=== PATIENT | male | born 1965 | race Caucasian/White ===

== ENCOUNTER 2016-11-28 18:45 | Inpatient (IN) | payer MEDICAID ==
[~2016-11-28] VITALS: Ht 157.5 cm; Wt 78.0 kg
[~2016-11-28 18:45] MED LIST: ACET325T33 PO; CEFD300C2 PO; GLYB1TAB3 PO; METO10TA92 PO; PANT40TA3 PO
[2016-11-28 19:32] VITALS: Ht 157.5 cm; Wt 78.0 kg
[2016-11-28] MEDS ORDERED: SOD CHLORIDE 0.9% 1,000 ML IV STA (20:35)
[2016-11-28] MEDS ORDERED: morphine 4 MG/ML VIAL IV STA ×2 (20:35→22:27)
[2016-11-28] MEDS ORDERED: ONDANSETRON 4 MG INJ IV STA ×2 (20:35→22:27)
[2016-11-28 20:55] LABS: ABNORMAL IP MESSAGE 1; BASOPHILS % 0.5 % (0.0-2.0); EOSINOPHILS % 0.1 % (0.0-7.0); HEMATOCRIT 46.9 % (42.0-52.0); LYMPHOCYTES % 6.8 % (15.0-51.0); MEAN CORPUSCULAR HEMOGLOBIN 34.7 pg (29.0-33.0); MEAN CORPUSCULAR VOLUME 89.3 fl (82.0-101.0); MONOCYTES % 6.5 % (0.0-11.0); NEUTROPHILS % 85.6 % (39.0-77.0); PLATELET COUNT 80 10^3/UL (140-415); POSITIVE DIFF @See below; RED BLOOD COUNT 5.25 10^6/ul (4.70-6.10); WHITE BLOOD COUNT 15.8 10^3/ul (4.8-10.8)
[2016-11-28 21:04] LABS: MEAN CORPUSCULAR HGB CONC 38.8 g/dl (32.0-37.0)
[2016-11-28 21:05] LABS: ADD UMIC YES; UR ASCORBIC ACID NEGATIVE (NEGATIVE); UR BACTERIA FEW /HPF (NONE SEEN); UR BILIRUBIN (Dip) NEGATIVE (NEGATIVE); UR BLOOD (Dip) 2+ mg/dL (NEGATIVE); UR CLARITY CLEAR (CLEAR); UR COLOR YELLOW (YELLOW); UR GLUCOSE (Dip) 3+ mg/dL (NEGATIVE); UR KETONES (Dip) 2+ mg/dL (NEGATIVE); UR LEUKOCYTE ESTERASE (Dip) NEGATIVE Leu/ul (NEGATIVE); UR MUCUS FEW /HPF (NONE SEEN); UR NITRITE (Dip) NEGATIVE (NEGATIVE); UR RBC 6 /HPF (0-5); UR SPECIFIC GRAVITY (Dip) 1.044 (1.003-1.030); UR TOTAL PROTEIN (Dip) 3+ mg/dl (NEGATIVE); UR UROBILINOGEN (Dip) NEGATIVE (NEGATIVE)
[2016-11-28] MEDS ORDERED: GLYB1TAB3 PO (21:05)
[2016-11-28] MEDS ORDERED: SIMV20TA PO (21:06)
[2016-11-28 21:07] LABS: HEMOGLOBIN 18.2 g/dl (14.0-18.0)
[2016-11-28 21:14] LABS: ALANINE AMINOTRANSFERASE 37 IU/L (13-69); ALBUMIN 3.9 g/dl (3.3-4.9); ALBUMIN/GLOBULIN RATIO 0.81; ALKALINE PHOSPHATASE 140 IU/L (42-121); ANION GAP 27 (8-16); ASPARTATE AMINO TRANSFERASE 29 IU/L (15-46); BILIRUBIN,INDIRECT 0.7 mg/dl (0-1.1); BILIRUBIN,TOTAL 0.7 mg/dl (0.2-1.3); BLOOD UREA NITROGEN 9 mg/dl (7-20); CALCIUM 9.1 mg/dl (8.4-10.2); CARBON DIOXIDE 18 mmol/L (21-31); CHLORIDE 97 mmol/L (97-110); CREATININE 0.47 mg/dl (0.61-1.24); GLUCOSE 279 mg/dl (70-220); POTASSIUM 4.4 mmol/L (3.5-5.1); SODIUM 138 mmol/L (135-144); TOTAL PROTEIN 8.7 g/dl (6.1-8.1)
[2016-11-28 21:27] LABS: TROPONIN-I < 0.012 ng/ml (0.00-0.12)
[2016-11-28 23:21] LABS: LYMPHOCYTES # 1.3 10^3/ul (0.8-2.9); MONOCYTES % (M) 7 % (0-11)
[2016-11-28 23:22] LABS: MONOCYTE # 1.1 10^3/ul (0.3-0.9)
--- NOTE | 2016-11-28 23:48 | RADRPT ---
PROCEDURE: ULTRASOUND LIMITED ABDOMEN CLINICAL INDICATION: 51-year-old male with abdominal pain. TECHNIQUE: Multiple sonographic of the right upper quadrant of the abdomen were obtained. The imag es were reviewed on a PACS workstation. COMPARISON: None. FINDINGS: The pancreas is partially visualized and is otherwise without abnormal echogenicity. The liver displays normal echogenicity. The liver measures 15.6 cm in length. No evidence of intrah epatic biliary ductal dilatation is seen. The portal and hepatic veins are unremarkable. The gallbladder demonstrates no wall thickening, sludge, nor stones. No pericholecystic fluid is see n. The common bile duct measures 4.2 mm and is not dilated. The right kidney displays normal echogenicity. The right kidney measures 12.9 cm in maximal length. No caliectasis or hydronephrosis is seen. No free fluid is seen. IMPRESSION: Unremarkable right upper quadrant abdominal ultrasound. .Antonio Moon MD, MD Date Time Electronically viewed and signed by .Antonio Moon MD, on 11/28/2016 23:48 .M/
--- NOTE | 2016-11-29 01:39 | ERA ---
ER Documentation Chief Complaint Date/Time DATE: 11/29/16 TIME: 01:38 Chief Complaint left upper quadrant abdominal pain noted with n/v [employer] PACKAGE [employer]ER. Hx: Gallstones HPI 51-year-old male here with left upper abdominal pain with nausea vomiting prior to arrival. Pain is mild to moderate intensity radiates to his back. No fevers no chills. No other current complaints ROS All systems reviewed and are negative except as per history of present illness. Medications Home Meds Reported Medications Simvastatin* (Zocor*) 20 Mg Tablet, 20 MG PO QAM, #30 TAB 11/28/16 Glyburide/Metformin HCl (Glucovance 5-500 mg Tablet) 1 Each Tablet, 1 EACH PO DAILY, TAB 11/28/16 Discontinued Reported Medications Glyburide, Micro-Metformin Hcl (Glyburide-Metformin) 5-500 Tab, 1 TAB PO BID, TAB 03/25/15 Cefdinir (Cefdinir) 300 Mg Capsule, 300 MG PO DAILY, #30 CAP 03/25/15 Discontinued Scripts Pantoprazole* (Protonix*) 40 Mg Tablet.dr, 40 MG PO DAILY, #90 TAB Prov:PRATIBHA MCCLAIN MD 02/09/16 Metoclopramide* (Reglan*) 10 Mg Tablet, 10 MG PO Q6H Y for NAUSEA AND OR VOMITING, #30 TAB Prov:PRATIBHA MCCLAIN MD 02/09/16 Acetaminophen* (Tylenol*) 325 Mg Tablet, 650 MG PO Q4H Y for PAIN LEVEL 1-5, # 30 TAB Prov:PRATIBHA MCCLAIN MD 02/09/16 Allergies Allergies: Coded Allergies: No Known Allergy (Unverified , 11/28/16) PMhx/Soc History of Surgery: No Anesthesia Reaction: No Hx Neurological Disorder: No Hx Respiratory Disorders: No Hx Cardiac Disorders: Yes (hyperlipidemia and diabetes) Hx Psychiatric Problems: No Hx Miscellaneous Medical Probl: No Hx Alcohol Use: Yes (02/04/2016, occasioanlly) Hx Substance Use: Yes Hx Tobacco Use: Yes (when drinking alcohol) Smoking Status: Never smoker Physical Exam Vitals Vital Signs Date Time Temp Pulse Resp B/P Pulse Ox O2 Delivery O2 Flow Rate FiO2 11/28/16 23:00 98.2 77 22 133/77 98 Room Air 11/28/16 20:53 97.9 81 22 151/71 96 Room Air 11/28/16 19:32 97.9 121 22 128/96 95 Physical Exam Const: [] Head: Atraumatic Eyes: Normal Conjunctiva ENT: Normal External Ears, Nose and Mouth. Neck: Full range of motion..~ No meningismus. Resp: Clear to auscultation bilaterally Cardio: Regular rate and rhythm, no murmurs Abd: Soft, non tender, non distended. Normal bowel sounds Skin: No petechiae or rashes Back: No midline or flank tenderness Ext: No cyanosis, or edema Neur: Awake and alert Psych: Normal Mood and Affect Result Diagram: 11/28/16203811/28/162038 Results 24 hrs Laboratory Tests Test 11/28/16 20:39 White Blood Count 15.810^3/ul Red Blood Count 5.2510^6/ul Hemoglobin 18.2g/dl Hematocrit 46.9% Mean Corpuscular Volume 89.3fl Mean Corpuscular Hemoglobin 34.7pg Mean Corpuscular Hemoglobin Concent 38.8g/dl Red Cell Distribution Width 12.0% Platelet Count 8010^3/UL Mean Platelet Volume fl Neutrophils % 85.6% Segmented Neutrophils % (Manual) 85% Lymphocytes % 6.8% Lymphocytes % (Manual) 8% Monocytes % 6.5% Monocytes % (Manual) 7% Eosinophils % 0.1% Basophils % 0.5% Nucleated Red Blood Cells % 0.0/100WBC Neutrophils # (Manual) 10^3/ul Absolute Lymphocytes (Manual) 1.010^3/ul Lymphocytes # 1.310^3/ul Monocytes # 1.110^3/ul Absolute Monocytes (Manual) 0.910^3/ul Eosinophils # 10^3/ul Basophils # 10^3/ul Nucleated Red Blood Cells # 0.010^3/ul Activated Partial Thromboplast Time 30.8Sec Urine Color YELLOW Urine Clarity CLEAR Urine pH 5.0 Urine Specific [place] 1.044 Urine Ketones 2+mg/dL Urine Nitrite NEGATIVEmg/dL Urine Bilirubin NEGATIVEmg/dL Urine Urobilinogen NEGATIVEmg/dL Urine Leukocyte Esterase NEGATIVELeu/ul Urine Microscopic RBC 6/HPF Urine Microscopic WBC 1/HPF Urine Bacteria FEW/HPF Urine Mucus FEW/HPF Urine Hemoglobin 2+mg/dL Urine Glucose 3+mg/dL Urine Total Protein 3+mg/dl Sodium Level 138mmol/L Potassium Level 4.4mmol/L Chloride Level 97mmol/L Carbon Dioxide Level 18mmol/L Anion Gap 27 Blood Urea Nitrogen 9mg/dl Creatinine 0.47mg/dl Glucose Level 279mg/dl Calcium Level 9.1mg/dl Total Bilirubin 0.7mg/dl Direct Bilirubin 0.00mg/dl Indirect Bilirubin 0.7mg/dl Aspartate Amino Transf (AST/SGOT) 29IU/L Alanine Aminotransferase (ALT/SGPT) 37IU/L Alkaline Phosphatase 140IU/L Troponin I < 0.012ng/ml Total Protein 8.7g/dl Albumin 3.9g/dl Globulin 4.80g/dl Albumin/Globulin Ratio 0.81 Lipase 2683U/L Current Medications Medications (Trade) Dose Ordered Sig/Aldo Route PRN Reason Start Time Stop Time Status Last Admin Dose Admin Sodium Chloride (NS) 1,000 ml @ 1,000 mls/hr Q1H STAT IV 11/28/16 20:35 11/28/16 21:34 DC 11/28/16 21:03 Morphine Sulfate (morphine) 4 mg ONCE STAT IV 11/28/16 20:35 11/28/16 20:37 DC 11/28/16 21:02 Ondansetron HCl (Zofran Inj) 4 mg ONCE STAT IV 11/28/16 20:35 11/28/16 20:37 DC 11/28/16 21:03 Morphine Sulfate (morphine) 4 mg ONCE STAT IV 11/28/16 22:27 11/28/16 22:30 DC 11/28/16 22:27 Ondansetron HCl (Zofran Inj) 4 mg ONCE STAT IV 11/28/16 22:27 11/28/16 22:30 DC 11/28/16 22:27 Procedures/MDM 51-year-old male with evidence of gallstone pancreatitis. Patient will be admitted. Fluid hydration and pain meds given. Departure Diagnosis: Primary Impression: Pancreatitis Qualified Code: K85.90 - Acute pancreatitis, unspecified complication status, unspecified pancreatitis type Condition: Serious YOLANDA FIGUEROA Nov 29, 2016 01:39
[2016-11-29 13:00] VITALS: BP 134/94; PULSE 107; RESP 20
[2016-11-29 13:07] VITALS: TEMP 98.1
[2016-11-29] MEDS ORDERED: ACETAMINOPHEN 325 MG TAB PO PRN ×2 (15:00→16:00)
[2016-11-29] MEDS ORDERED: DOCUSATE SODIUM 100 MG CAP PO PRN (16:00)
[2016-11-29] MEDS ORDERED: NITROGLYCERIN (SL) 0.4 MG TAB SL PRN (16:00)
[2016-11-29] MEDS ORDERED: morphine 2 MG INJ IV PRN (16:00)
[2016-11-29] MEDS ORDERED: ALBUTEROL/IPRATROPIUM (NEB) 3 ML AMP HHN PRN (16:00)
[2016-11-29] MEDS ORDERED: MAGNESIUM HYDROXIDE 30ML CUP PO PRN (16:00)
[2016-11-29] MEDS ORDERED: NACL 0.9% 3 ML SYG IV SCH (16:00)
[2016-11-29] MEDS ORDERED: LORAZEPAM 2 MG INJ IV PRN ×2 (16:00)
[2016-11-29] MEDS ORDERED: ONDANSETRON 4 MG INJ IV PRN (16:00)
[2016-11-29] MEDS ORDERED: HYDROCODONE/APAP (5/325) TAB PO PRN (16:00)
[2016-11-29] MEDS ORDERED: hydrALAzine 20 MG INJ IV PRN (16:00)
[2016-11-29] MEDS ORDERED: NA PHOSPHATE/BIPHOS 133 ML ENEMA PR PRN (16:00)
[2016-11-29] MEDS: PANTOPRAZOLE 40 MG INJ IV SCH (17:00)
[2016-11-29] MEDS: INSULIN ASPART [NOVOLOG] 3 ML PEN SC SCH ×2 (17:00→23:51)
[2016-11-29] MEDS: SOD CHLORIDE 0.9% 1,000 ML IV SCH (17:02)
[2016-11-29 17:53] LABS: HAAIG REFLEX REFLEX FILED
--- NOTE | 2016-11-29 18:02 | HP ---
DATE OF ADMISSION: 11/28/2016 CHIEF COMPLAINT: Abdominal pain. HISTORY OF PRESENT ILLNESS: A 51-year-old male with past medical history of prior alcohol abuse, prior pancreatitis, high cholesterol, high triglyceridemia, diabetes, hypertension, who has been having abdominal pain for the last 2 days and getting progressively worse. He had some nausea and vomiting symptoms, nonbilious, nonbloody at home. Denies any upper or lower GI bleeding. No fevers or chills. No diarrhea. No constipation. No headaches or dizziness or loss of consciousness. When he came in today, he was found with an elevated white blood cell count of 15.8, and also his lipase was elevated around 2,600, signs of pancreatitis. The patient was last here at our hospital in February 2016 for acute alcoholic pancreatitis at that time. PAST MEDICAL HISTORY: As above. ALLERGIES: NO KNOWN DRUG ALLERGIES. HOME MEDICATIONS: 1. Simvastatin 20 mg q.a.m. 2. Glyburide/metformin 5-500 one daily. PAST SURGICAL HISTORY: None. SOCIAL HISTORY: The patient states his last drink was 3 days ago. He does drink wine and beer about 2-3 times a week. He has done this for many years. Denies any IV drug abuse or smoking. FAMILY HISTORY: Noncontributory. PHYSICAL EXAMINATION: VITAL SIGNS: T-max 98.2, pulse of 77 to 121, respirations 22, blood pressure 128-151 systolic over 71-96 diastolic, satting 93 percent on room air. GENERAL: Patient lying in bed, answering questions appropriately. No acute distress. HEENT: Pupils equal, round, react to light. Extraocular muscles intact. NECK: Supple. No thyromegaly. LUNGS: Clear to auscultation bilaterally. CARDIOVASCULAR: S1, S2 heard. No rubs, gallops. ABDOMEN: Soft, nontender, nondistended. Normal bowel sounds. No rebound or guarding. MUSCULOSKELETAL: No lower extremity edema. NEUROLOGIC: No focal deficits. DATA: WBC 15.8, hemoglobin 18.2, hematocrit 46.9, platelets 80. Sodium 138, potassium 4.4, chloride 97, CO2 of 18, BUN 9, creatinine 0.47, glucose 279. He had a gallbladder ultrasound performed today that was unremarkable. ASSESSMENT/PLAN: A 51-year-old male coming in with signs of abdominal pain with signs of pancreatitis. Differential diagnosis includes hypertriglyceridemia versus alcohol abuse. 1. Abdominal pain. Again likely secondary to pancreatitis. Will admit the patient. Keep him NPO, give him IV fluids. Check TSH, A1c and lipid panel. Antiemetic medications, as well. Trend his lipase. Aggressive IV fluid hydration. 2. Type 2 diabetes. Check A1c. Put him on sliding scale insulin. 3. Hypertension. Continue current blood pressure medicines. 4. Leukocytosis of unclear source. Follow up final urine results. Consider doing chest x-ray. No signs of any fever. Monitor for now. 5. High cholesterol. Again follow up lipid panel. Continue statin. 6. History of alcohol abuse. Monitor for any signs of DTs. Will put him on a banana bag and Ativan every 1 hours p.r.n. He is not showing any signs of DTs. Educate about alcohol cessation. 7. GI prophylaxis with PPI. 8. DVT prophylaxis with SCDs. Dictated By: Reji Nieto MD /finesse/erik /Document#: [id number]
[2016-11-29 18:24] LABS: ETHANOL < 10.0 mg/dl
[2016-11-29] MEDS ORDERED: GLUCOSE GEL 15 GRAM TUBE PO PRN ×2 (18:30)
[2016-11-29] MEDS ORDERED: DEXTROSE 50% 50 ML SYRINGE IV PRN ×2 (18:30)
[2016-11-29] MEDS ORDERED: GLUCOSE GEL 15 GRAM TUBE BUCCAL PRN (18:30)
[2016-11-29] MEDS ORDERED: GLUCAGON 1 MG INJ IM PRN (18:30)
[2016-11-29 19:04] LABS: HEPATITIS B CORE ANTIBODY NEGATIVE (NEGATIVE)
[2016-11-29] MEDS: PIPER-TAZO 3.375 GM IV (PMX) 100 ML IVPB SCH ×2 (19:37→23:36)
[2016-11-29] MEDS: MULTIVITAMINS 10 ML, THIAMINE 100 MG, FOLIC ACID 1 MG in SOD CHLORIDE 0.9% 1,000 ML IVPB SCH (19:37)
[2016-11-29] MEDS ORDERED: HEPARIN 5,000 UNIT/0.5 ML VIAL SC SCH (21:00)
[2016-11-29] MEDS: ATORVASTATIN 10 MG TAB PO SCH (23:35)
[2016-11-30 00:18] VITALS: BP 128/80; RESP 19
[2016-11-30] MEDS: INSULIN ASPART [NOVOLOG] 3 ML PEN SC SCH ×6 (01:00→20:23)
[2016-11-30] MEDS: ACCU-CHEK XX SCH (02:45)
[2016-11-30] MEDS: SOD CHLORIDE 0.9% 1,000 ML IV SCH ×3 (03:51→23:22)
[2016-11-30 04:00] VITALS: BP 124/65; RESP 19
[2016-11-30 04:17] VITALS: BP 124/65; PULSE 78; RESP 19
[2016-11-30] MEDS: PANTOPRAZOLE 40 MG INJ IV SCH (05:31)
[2016-11-30] MEDS: PIPER-TAZO 3.375 GM IV (PMX) 100 ML IVPB SCH ×4 (05:31→23:22)
[2016-11-30 06:40] LABS: ABNORMAL IP MESSAGE 1; BASOPHILS % 0.3 % (0.0-2.0); EOSINOPHILS # 0.1 10^3/ul (0.0-0.5); EOSINOPHILS % 1.2 % (0.0-7.0); HEMOGLOBIN 14.6 g/dl (14.0-18.0); LYMPHOCYTES # 1.3 10^3/ul (0.8-2.9); LYMPHOCYTES % 14.1 % (15.0-51.0); MEAN CORPUSCULAR HEMOGLOBIN 32.2 pg (29.0-33.0); MEAN CORPUSCULAR HGB CONC 34.8 g/dl (32.0-37.0); MEAN CORPUSCULAR VOLUME 92.7 fl (82.0-101.0); MEAN PLATELET VOLUME 14.5 fl (7.4-10.4); MONOCYTE # 0.7 10^3/ul (0.3-0.9); MONOCYTES % 7.6 % (0.0-11.0); NEUTROPHILS % 76.2 % (39.0-77.0); POSITIVE DIFF @See below; RED BLOOD COUNT 4.53 10^6/ul (4.70-6.10); RED CELL DISTRIBUTION WIDTH 12.8 % (11.5-14.5); WHITE BLOOD COUNT 9.1 10^3/ul (4.8-10.8)
[2016-11-30 07:01] LABS: ALBUMIN 2.7 g/dl (3.3-4.9); ALBUMIN/GLOBULIN RATIO 0.93; BILIRUBIN,INDIRECT 0.6 mg/dl (0-1.1); BILIRUBIN,TOTAL 0.6 mg/dl (0.2-1.3); CALCIUM 7.7 mg/dl (8.4-10.2); CREATININE 0.47 mg/dl (0.61-1.24); PHOSPHORUS 2.2 mg/dl (2.5-4.9); TOTAL PROTEIN 5.6 g/dl (6.1-8.1)
[2016-11-30 07:19] LABS: PLATELET COUNT 71 10^3/UL (140-415); THYROID STIMULATING HORMONE 3.92 MIU/L (0.465-4.680)
[2016-11-30 08:00] VITALS: BP 119/68; RESP 18
[2016-11-30 08:30] LABS: CHOL/HDL RATIO 14.6 RATIO
[2016-11-30] MEDS: MULTIVITAMINS 10 ML, THIAMINE 100 MG, FOLIC ACID 1 MG in SOD CHLORIDE 0.9% 1,000 ML IVPB SCH (09:17)
--- NOTE | 2016-11-30 11:11 | PN ---
Date/Time of Note Date/Time of Note DATE: 11/30/16 TIME: 11:05 Assessment/Plan VTE Prophylaxis VTE Prophylaxis Intervention: SCD's Lines/Catheters IV Catheter Type (from Nrsg): Peripheral IV Assessment/Plan Chief Complaint/Hosp Course Assessment and plan 1. Abdominal pain secondary to pancreatitis. On IV fluids continue on analgesics. Lipase level downtrending. Will trial on clear liquid diet today. 2. Type 2 diabetes. Continue on insulin regimen. A1c result is pending. 3. Essential hypertension. Continue antihypertensives and adjust needed 4. Dyslipidemia. Patient to be resumed on statin medication 5. History of alcohol abuse. On banana bag at this time. Monitor for DTs. Appears stable at present. Disposition plan: We will trial on clear liquid diet today. Anticipate discharge within the next 24 hours if able to tolerate regular food and pain resolved. Discussed plan of care with Dr. Nieto Problems: Subjective 24 Hr Interval Summary Free Text/Dictation Reports less pain in the abdomen at this time Exam/Review of Systems Vital Signs Vitals Vital Signs Date Time Temp Pulse Resp B/P Pulse Ox O2 Delivery O2 Flow Rate FiO2 11/30/16 08:00 98.8 86 18 119/68 96 11/30/16 04:17 Room Air 11/29/16 06:13 2.0 Intake and Output 11/29/16 11/29/16 11/30/16 15:00 23:00 07:00 Intake Total 1200 ml Balance 1200 ml Exam Reports less pain in abdomen at this time Constitutional: alert, oriented Psych: nl mood/affect Head: normocephalic Eyes: nl conjunctiva Respiratory: clear to auscultation Cardiovascular: regular rate and rhythm Gastrointestinal: soft, tender (minimally epigastric area ) Musculoskeletal: nl extremities to inspection 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, nl mental status, nl speech Results Result Diagram: 11/30/164 11/30/16 0444 Results 24 hrs Laboratory Tests Test 11/29/16 17:05 11/29/16 17:25 11/29/16 23:35 11/30/16 02:42 Free Thyroxine 0.80 Ethyl Alcohol Level < 10.0 Hepatitis B Surface Antigen NEGATIVE Hepatitis B Core Total Antibody NEGATIVE Hepatitis C Antibody NEGATIVE Bedside Glucose 214 199 178 Test 11/30/16 04:44 11/30/16 05:30 11/30/16 09:14 11/30/16 09:15 White Blood Count 9.1 # Red Blood Count 4.53 L Hemoglobin 14.6 Hematocrit 42.0 Mean Corpuscular Volume 92.7 Mean Corpuscular Hemoglobin 32.2 Mean Corpuscular Hemoglobin Concent 34.8 Red Cell Distribution Width 12.8 Platelet Count 71 L Mean Platelet Volume 14.5 H Neutrophils % 76.2 Lymphocytes % 14.1 L Monocytes % 7.6 Eosinophils % 1.2 Basophils % 0.3 Nucleated Red Blood Cells % 0.0 Neutrophils # (Manual) 6.9 Lymphocytes # 1.3 Monocytes # 0.7 Eosinophils # 0.1 Basophils # 0.0 Nucleated Red Blood Cells # 0.0 Sodium Level 136 Potassium Level 4.0 Chloride Level 98 Carbon Dioxide Level 24 Anion Gap 18 #H Blood Urea Nitrogen 15 Creatinine 0.47 L Glucose Level 176 # Calcium Level 7.7 L Phosphorus Level 2.2 L Magnesium Level 2.0 Total Bilirubin 0.6 Direct Bilirubin 0.00 Indirect Bilirubin 0.6 Aspartate Amino Transf (AST/SGOT) 31 Alanine Aminotransferase (ALT/SGPT) 45 Alkaline Phosphatase 81 Total Protein 5.6 #L Albumin 2.7 #L Globulin 2.90 Albumin/Globulin Ratio 0.93 Triglycerides Level 1069 H Cholesterol Level 410 H LDL Cholesterol, Calculated 168 HDL Cholesterol 28 Cholesterol/HDL Ratio 14.6 Lipase 814 H Thyroid Stimulating Hormone (TSH) 3.920 Bedside Glucose 173 203 183 Medications Medications Current Medications Acetaminophen (Tylenol Tab) 650 mg Q6H PRN PO ELEVATED TEMPERATURE >102; Start 11/29/16 at 15:00 Ondansetron HCl (Zofran Inj) 4 mg Q6H PRN IV NAUSEA AND/OR VOMITING Last administered on 11/29/16 23:42; Admin Dose 4 MG; Start 11/29/16 at 16:00 Acetaminophen (Tylenol Tab) 650 mg Q6H PRN PO PAIN LEVEL 1-3 OR FEVER; Start at 16:00 Acetaminophen/ Hydrocodone Bitart (Ary (5/325)) 1 tab Q6H PRN PO MODERATE PAIN LEVEL 4-6; Start 11/29/16 at 16:00 Morphine Sulfate (morphine) 2 mg Q4H PRN IV SEVERE PAIN LEVEL 7-10 Last administered on 11/29/16 23:42; Admin Dose 2 MG; Start 11/29/16 at 16:00 Docusate Sodium (Colace) 100 mg Q12H PRN PO CONSTIPATION; Start 11/29/16 at 16: 00 Magnesium Hydroxide (Milk Of Mag) 30 ml DAILY PRN PO CONSTIPATION; Start at 16:00 Sodium Biphosphate/ Sodium Phosphate 133 ml 133 ml DAILY PRN [place] CONSTIPATION; Start 11/29/16 at 16:00 Sodium Chloride 1,000 ml @ 100 mls/hr Q10H IV Last administered on 11/30/16 03:51; Admin Dose 100 MLS/HR; Start 11/29/16 at 17:00 Piperacillin Sod/ Tazobactam Sod (Zosyn 3.375gm/ 100 ml (Pmx)) 100 ml @ 200 mls /hr Q6 IVPB Last administered on 11/30/16 05:31; Admin Dose 200 MLS/HR; Start 11/29/16 at 18:00 Hydralazine HCl (Apresoline) 10 mg Q6H PRN IV ELEVATED BLOOD PRESSURE; Start at 16:00 Nitroglycerin (Nitroglycerin (Sl Tab) 0.4 Mg) 1 tab Q5M PRN SL ANGINA; Start at 16:00 Diagnostic Test (Pha) (Accu-Chek) 1 ea 02 XX Last administered on 11/30/16 02: 45; Admin Dose 1 EA; Start 11/30/16 at 02:00 Insulin Aspart (Novolog Insulin Pen) NOVOLOG *MILD* ALGORI... Q4 SC Last administered on 11/30/16 09:19; Admin Dose 2 UNIT; Start 11/29/16 at 17:00 Atorvastatin Calcium (Lipitor) 10 mg DAILY@21 PO Last administered on 23:35; Admin Dose 10 MG; Start 11/29/16 at 21:00 Lorazepam 1 mg 1 mg Q1H PRN IV CONTROL WITHDRAWAL SYMPTOMS; Start 11/29/16 at 16:00 Multivitamins/ Thiamine HCl/ Folic Acid/Sodium Chloride (Mvi Adult/ Vitamin B1/ Folic Acid/NS) 1,011.2 ml @ 125 mls/ hr DAILY@09 IVPB Last administered on 09:17; Admin Dose 125 MLS/HR; Start 11/29/16 at 18:00 Miscellaneous Information 1 ea NOTE XX ; Start 11/29/16 at 18:30 Glucose (Glutose) 15 gm Q15M PRN PO DECREASED GLUCOSE; Start 11/29/16 at 18:30 Glucose (Glutose) 22.5 gm Q15M PRN PO DECREASED GLUCOSE; Start 11/29/16 at 18: 30 Dextrose (D50w Syringe) 25 ml Q15M PRN IV DECREASED GLUCOSE; Start 11/29/16 at 18:30 Dextrose (D50w Syringe) 50 ml Q15M PRN IV DECREASED GLUCOSE; Start 11/29/16 at 18:30 Glucagon (Glucagen) 1 mg Q15M PRN IM DECREASED GLUCOSE; Start 11/29/16 at 18:30 Glucose (Glutose) 15 gm Q15M PRN BUCCAL DECREASED GLUCOSE; Start 11/29/16 at 18 :30 Famotidine (Pepcid Iv) 20 mg BID IV ; Start 12/01/16 at 09:00 CYNTHIA WEAVER Nov 30, 2016 11:11
[2016-11-30 15:36] VITALS: BP 101/59; RESP 20
[2016-11-30 20:00] VITALS: BP 120/80; RESP 20
[2016-11-30] MEDS: ATORVASTATIN 10 MG TAB PO SCH (20:24)
[2016-12-01] MEDS: INSULIN ASPART [NOVOLOG] 3 ML PEN SC SCH ×6 (01:19→16:44)
[2016-12-01] MEDS: ACCU-CHEK XX SCH (01:20)
[2016-12-01 02:00] VITALS: BP 117/76; RESP 19
[2016-12-01] MEDS: PIPER-TAZO 3.375 GM IV (PMX) 100 ML IVPB SCH ×3 (05:20→18:00)
[2016-12-01 06:10] LABS: ABNORMAL IP MESSAGE 1; BASOPHILS % 0.3 % (0.0-2.0); EOSINOPHILS # 0.2 10^3/ul (0.0-0.5); EOSINOPHILS % 2.2 % (0.0-7.0); HEMOGLOBIN 13.5 g/dl (14.0-18.0); LYMPHOCYTES # 1.4 10^3/ul (0.8-2.9); LYMPHOCYTES % 20.7 % (15.0-51.0); MEAN CORPUSCULAR HEMOGLOBIN 31.7 pg (29.0-33.0); MEAN CORPUSCULAR HGB CONC 33.8 g/dl (32.0-37.0); MEAN CORPUSCULAR VOLUME 93.9 fl (82.0-101.0); MONOCYTE # 0.6 10^3/ul (0.3-0.9); NEUTROPHILS % 67.5 % (39.0-77.0); PLATELET COUNT 74 10^3/UL (140-415); POSITIVE DIFF @See below; RED BLOOD COUNT 4.26 10^6/ul (4.70-6.10); WHITE BLOOD COUNT 6.9 10^3/ul (4.8-10.8)
[2016-12-01 07:01] LABS: CALCIUM 7.9 mg/dl (8.4-10.2); CREATININE 0.53 mg/dl (0.61-1.24); POTASSIUM 3.4 mmol/L (3.5-5.1)
[2016-12-01 08:00] VITALS: BP 115/71; RESP 18
[2016-12-01] MEDS: SOD CHLORIDE 0.9% 1,000 ML IV SCH (09:00)
[2016-12-01] MEDS ORDERED: FAMOTIDINE 20 MG INJ IV SCH (09:00)
[2016-12-01] MEDS ORDERED: POTASSIUM CHLORIDE (SR) 20 MEQ TAB PO STA (10:54)
[2016-12-01] MEDS: MULTIVITAMINS 10 ML, THIAMINE 100 MG, FOLIC ACID 1 MG in SOD CHLORIDE 0.9% 1,000 ML IVPB SCH (11:00)
[2016-12-01 14:00] VITALS: BP 125/75; RESP 18
--- NOTE | 2016-12-01 14:17 | DS ---
Date/Time of Note Date/Time of Note DATE: 12/01/16 TIME: 14:11 Discharge Summary Admission/Discharge Info Admit Date/Time Nov 28, 2016 at 23:04 Discharge Date/Time Discharge Diagnosis 1. Acute pancreatitis, alcohol related, resolving, quit ETOH. 2. Type 2 diabetes. follow up with PCP 3. Essential hypertension. stable 4. Dyslipidemia. on statin 5. ETOH abuse, quit drinking Patient Condition: Stable Hospital Course A 51-year-old male with past medical history of prior alcohol abuse, prior pancreatitis, high cholesterol, high triglyceridemia, diabetes, hypertension, who has been having abdominal pain for the last 2 days and getting progressively worse. He had some nausea and vomiting symptoms, nonbilious, nonbloody at home. Denies any upper or lower GI bleeding. No fevers or chills. No diarrhea. No constipation. No headaches or dizziness or loss of consciousness. When he came in today, he was found with an elevated white blood cell count of 15.8, and also his lipase was elevated around 2,600, signs of pancreatitis. Patient is treated with IVF and pain management along with bowel resting. Symptoms improved. He tolerates diet. No sign of alcohol withdrawal. He is instructed to quit alcohol. Home Meds Reported Medications Simvastatin* (Zocor*) 20 Mg Tablet, 20 MG PO QAM, #30 TAB 11/28/16 Glyburide/Metformin HCl (Glucovance 5-500 mg Tablet) 1 Each Tablet, 1 EACH PO DAILY, TAB 11/28/16 Discontinued Reported Medications Glyburide, Micro-Metformin Hcl (Glyburide-Metformin) 5-500 Tab, 1 TAB PO BID, TAB 03/25/15 Cefdinir (Cefdinir) 300 Mg Capsule, 300 MG PO DAILY, #30 CAP 03/25/15 Discontinued Scripts Pantoprazole* (Protonix*) 40 Mg Tablet.dr, 40 MG PO DAILY, #90 TAB Prov:PRATIBHA MCCLAIN MD 02/09/16 Metoclopramide* (Reglan*) 10 Mg Tablet, 10 MG PO Q6H Y for NAUSEA AND OR VOMITING, #30 TAB Prov:PRATIBHA MCCLAIN MD 02/09/16 Acetaminophen* (Tylenol*) 325 Mg Tablet, 650 MG PO Q4H Y for PAIN LEVEL 1-5, # 30 TAB Prov:PRATIBHA MCCLAIN MD 02/09/16 Follow-up Plan PCP in one week Primary Care Provider Barbara Hdez MD Pending Labs Laboratory Tests Test 11/30/16 16:54 11/30/16 20:21 12/01/16 01:17 12/01/16 05:19 Bedside Glucose 294mg/dL (70-220) 260mg/dL (70-220) 211mg/dL (70-220) 179mg/dL (70-220) Test 12/01/16 05:37 12/01/16 07:53 12/01/16 11:01 White Blood Count 6.910^3/ul (4.8-10.8) Red Blood Count 4.2610^6/ul (4.70-6.10) Hemoglobin 13.5g/dl (14.0-18.0) Hematocrit 40.0% (42.0-52.0) Mean Corpuscular Volume 93.9fl (82.0-101.0) Mean Corpuscular Hemoglobin 31.7pg (29.0-33.0) Mean Corpuscular Hemoglobin Concent 33.8g/dl (32.0-37.0) Red Cell Distribution Width 13.0% (11.5-14.5) Platelet Count 7410^3/UL (140-415) Mean Platelet Volume 14.0fl (7.4-10.4) Neutrophils % 67.5% (39.0-77.0) Lymphocytes % 20.7% (15.0-51.0) Monocytes % 9.0% (0.0-11.0) Eosinophils % 2.2% (0.0-7.0) Basophils % 0.3% (0.0-2.0) Nucleated Red Blood Cells % 0.0/100WBC (0.0-0.0) Neutrophils # (Manual) 4.710^3/ul (1.7-7.5) Lymphocytes # 1.410^3/ul (0.8-2.9) Monocytes # 0.610^3/ul (0.3-0.9) Eosinophils # 0.210^3/ul (0.0-0.5) Basophils # 0.010^3/ul (0.0-0.1) Nucleated Red Blood Cells # 0.010^3/ul (0.0-0.0) Sodium Level 138mmol/L (135-144) Potassium Level 3.4mmol/L (3.5-5.1) Chloride Level 103mmol/L (97-110) Carbon Dioxide Level 28mmol/L (21-31) Anion Gap 10 (8-16) Blood Urea Nitrogen 10mg/dl (7-20) Creatinine 0.53mg/dl (0.61-1.24) Glucose Level 191mg/dl (70-220) Calcium Level 7.9mg/dl (8.4-10.2) Bedside Glucose 191mg/dL (70-220) 198mg/dL (70-220) SHANTELLE GRANADO MD Dec 01, 2016 14:17
[2016-12-02] MEDS ORDERED: ACCU-CHEK XX SCH (02:00)
== END 2016-12-01 18:53 | disposition home or self-care (01) | DRG 440 ==
LOC: E/R 18:45 → MS3 23:04 → PP2 11-30 03:35
PROVIDERS: ADMIT Internal Medicine; ATTEND Internal Medicine
DX: K85.20 Alcohol induced acute pancreatitis without necrosis or infection (principal); I10 Essential (primary) hypertension; E11.9 Type 2 diabetes mellitus without complications; E78.5 Hyperlipidemia, unspecified; D72.829 Elevated white blood cell count, unspecified
CPT/HCPCS: 36415; 76705; 80048; 80053; 80061; 80306; 81001; 82962; 83036; 83690; 83735; 84100; 84439; 84443; 84484; 85025; 85730; 86704; 86709; 86803; 87340; 93005; 96374; 96375; 96376; C9113; J1815; J2270; J2405; J2543; J3411; J7030

== ENCOUNTER 2017-04-25 03:38 | Emergency (ER) | END 2017-04-25 08:40 | disposition home or self-care (01) ==